=== PATIENT | male | born 1945 | race African-American/Black ===

== ENCOUNTER → 2020-05-05 | Day surgery (SDC) | payer MEDICARE, OTHER ==
[~2020-05-05] MED LIST: DIOVAN160 MG PO; LANTUS 3ML100 UNITS/ SC; LIPITOR10 MG PO; METFORMIN HCL500 MG PO; OR PHACO EYE KIT ONE; PREOP PHACO EYE KIT ONE
[2020-05-05 12:15] VITALS: BP 148/87
== END | disposition home or self-care (01) ==
LOC: OR 09:04
PROVIDERS: ATTEND Ophthalmology
DX: H25.11 Age-related nuclear cataract, right eye (principal); I10 Essential (primary) hypertension; E11.9 Type 2 diabetes mellitus without complications; E78.5 Hyperlipidemia, unspecified; Z01.812 Encounter for preprocedural laboratory examination; Z11.59 Encounter for screening for other viral diseases
CPT/HCPCS: 36415; 66984; 82948; U0002; V2632

== ENCOUNTER → 2020-05-19 | Day surgery (SDC) | payer MEDICARE ==
[~2020-05-19] MED LIST changes: +FENTANYL CITRATE/PF 100MCG/2 ML INJ ONE; +MIDAZOLAM HCL 2 MG/2 ML VIAL ONE
[2020-05-19 10:30] VITALS: BP 140/81
== END | disposition home or self-care (01) ==
LOC: OR 08:01
PROVIDERS: ATTEND Ophthalmology
DX: H25.12 Age-related nuclear cataract, left eye (principal); E11.9 Type 2 diabetes mellitus without complications; I10 Essential (primary) hypertension; E78.5 Hyperlipidemia, unspecified; Z01.812 Encounter for preprocedural laboratory examination; Z20.828 Contact with and (suspected) exposure to other viral communicable diseases; Z79.4 Long term (current) use of insulin
CPT/HCPCS: 36415; 66984; 82948; U0002; V2632; J2250; J3010